=== PATIENT | female | born 1970 | race Caucasian/White ===

== ENCOUNTER → 2024-06-23 06:19 | Day surgery (SDC) | payer OTHER, SELFPAY | LOC: GI 06:19 | PROVIDERS: ATTENDING PHYSICIAN Internal Medicine Gastroenterology | DX: Z12.11 Encounter for screening for malignant neoplasm of colon (principal); K57.30 Diverticulosis of large intestine without perforation or abscess without bleeding; K64.8 Other hemorrhoids | CPT/HCPCS: G0121 ==

== ENCOUNTER 2025-02-21 07:00 | Outpatient (RCR) | payer OTHER, SELFPAY | END 2025-02-21 23:59 | disposition home or self-care (01) | LOC: RPT 07:00 | PROVIDERS: ATTENDING PHYSICIAN Obstetrics & Gynecology; FAMILY PHYSICIAN Family Medicine | DX: N81.10 Cystocele, unspecified (principal); M62.89 Other specified disorders of muscle; R39.15 Urgency of urination; Z73.6 Limitation of activities due to disability | CPT/HCPCS: 97162; 97530 ==

== ENCOUNTER 2025-05-16 10:23 | Outpatient (RCR) | payer OTHER, SELFPAY | END 2025-05-16 23:59 | disposition home or self-care (01) | LOC: RPT 10:23 | PROVIDERS: ATTENDING PHYSICIAN Obstetrics & Gynecology; FAMILY PHYSICIAN Family Medicine | DX: N81.10 Cystocele, unspecified (principal); M62.89 Other specified disorders of muscle; R39.15 Urgency of urination; Z73.6 Limitation of activities due to disability; N39.3 Stress incontinence (female) (male) | CPT/HCPCS: 97014; 97110; 97112; 97140; 97530 ==

== ENCOUNTER 2025-06-06 17:32 | Outpatient (RCR) | payer OTHER, SELFPAY | END 2025-06-06 23:59 | disposition home or self-care (01) | LOC: RPT 17:32 | PROVIDERS: ATTENDING PHYSICIAN Obstetrics & Gynecology; FAMILY PHYSICIAN Family Medicine | DX: N81.10 Cystocele, unspecified (principal); M62.89 Other specified disorders of muscle; R39.15 Urgency of urination; Z73.6 Limitation of activities due to disability; N39.3 Stress incontinence (female) (male) | CPT/HCPCS: 97110; 97112; 97530 ==

== ENCOUNTER 2025-07-02 10:20 | Outpatient (RCR) | payer OTHER, SELFPAY | END 2025-07-02 23:59 | disposition home or self-care (01) | LOC: RPT 10:20 | PROVIDERS: ATTENDING PHYSICIAN Obstetrics & Gynecology; FAMILY PHYSICIAN Family Medicine | DX: N81.10 Cystocele, unspecified (principal); M62.89 Other specified disorders of muscle; R39.15 Urgency of urination; Z73.6 Limitation of activities due to disability; N39.3 Stress incontinence (female) (male) | CPT/HCPCS: 97112; 97530 ==